=== PATIENT | male | born 1990 | race Caucasian/White ===

== ENCOUNTER 2017-05-05 13:12 | Emergency (ER) | payer SELFPAY ==
--- NOTE | 2017-05-05 14:55 | RAD ---
LUMBAR SPINE 3 VIEWS: Date: 05/05/17 HISTORY: Trauma. Low back pain. FINDINGS/IMPRESSION: No acute fracture or subluxation is identified. POS: DWIGHT
[2017-05-05 14:58] LABS: Bilirubin Negative (Negative); Blood, Urine Negative (Negative); Glucose, Urine (Dipstick) Negative (Negative); Ketone, Urine Negative (Negative); Nitrite Negative (Negative); Protein, Urine (Dipstick) Negative (Neg-Trace); Urobilinogen 0.2 mg/dL (0.2-1.0)
== END 2017-05-05 15:02 | disposition home or self-care (01) ==
LOC: ERS 13:12
DX: S39.012A Strain of muscle, fascia and tendon of lower back, initial encounter (principal); F41.9 Anxiety disorder, unspecified; F32.9 Major depressive disorder, single episode, unspecified; F17.220 Nicotine dependence, chewing tobacco, uncomplicated; X50.0XXA Overexertion from strenuous movement or load, initial encounter; Y92.69 Other specified industrial and construction area as the place of occurrence of the external cause; Y99.0 Civilian activity done for income or pay
CPT/HCPCS: 72100; 81003

== ENCOUNTER 2019-06-30 09:03 | Inpatient (IN) | payer SELFPAY ==
[2019-06-30] MEDS ORDERED: Lidocaine Viscous Sol 2% 15 ml UD Cup ONE (09:44)
[2019-06-30] MEDS ORDERED: Mag-Al 1200 mg/1200 mg/30 ML UDCUP ONE (09:44)
[2019-06-30 10:01] LABS: #Basophils 0.1 thou/uL (0.0-0.2); #Lymphocytes 2.6 thou/uL (1.20-3.40); #Monocytes 0.7 thou/uL (0.11-0.59); %Basophils 0.7 % (0.0-1.0); %Eosinophils 0.5 % (0.0-10.0); %Lymphocytes 27.4 % (21.0-51.0); %Monocytes 7.2 % (0.0-10.0); %Neutrophils 64.2 % (42.0-75.0); Hemoglobin 16.7 g/dL (14.0-18.0); Mean Corpuscular HGB CONC 34.9 g/dL (32.0-36.0); Mean Corpuscular Hemoglobin 31.4 pg (27.0-31.0); Mean Corpuscular Volume 89.9 fL (78.0-98.0); Mean Platelet Volume 9.5 fL (7.4-10.4); Platelet Count 207 thou/uL (130-400); RBC Distribution Width 11.3 % (11.5-14.5); Red Blood Cell (RBC) Count 5.32 mill/uL (4.70-6.10); White Blood Cell (WBC) Count 9.3 thou/uL (4.8-10.8)
[2019-06-30 10:16] LABS: Anion Gap 14 mmol/L (10-20); BUN (Urea Nitrogen) 17 mg/dL (8.9-20.6); Calc. Creatinine Clearance 0 mL/min (70-130); Calcium 9.6 mg/dL (7.8-10.44); Carbon Dioxide 26 mmol/L (22-29); Chloride 102 mmol/L (98-107); Estimated GFR-MDRD 67; Glucose 108 mg/dL (70-105); Potassium 3.4 mmol/L (3.5-5.1); Sodium 139 mmol/L (136-145)
--- NOTE | 2019-06-30 11:32 | CT ---
EXAM: CT chest, abdomen, and pelvis with IV contrast: HISTORY: Severe epigastric abdominal pain started 5 weeks ago and has progressively gotten worse. Coffee-groun d emesis. COMPARISON: None FINDINGS: CT THORAX: Lungs: No consolidation, suspicious pulmonary nodule, or mass. Pleura: No pleural effusion. Lymph nodes: No lymphadenopathy. Mediastinum: There is minimal soft tissue attenuation seen in the anterior superior mediastinum likel y related to small amount residual thymic tissue. No discrete mass is present. Chest wall: No abnormalities CT ABDOMEN AND PELVIS: Liver: There is diminished attenuation seen adjacent to the falciform ligament with appearance most s uggestive of fatty infiltration. Small focal area of diminished attenuation measuring 2 cm is seen within the left hepatic lobe adjacent to the gallbladder which has similar attenuation as the low den sity area adjacent to the falciform ligament. In a patient of this age, these findings statistically most likely represent focal areas of fatty infiltration. Gallbladder: Within normal limits. Pancreas: Within normal limits. Spleen: Within normal limits. Adrenal glands: Within normal limits. Kidneys: An exophytic 2.4 cm fluid attenuation cystic lesion is seen in the inferior pole right kidne y compatible with a cyst. Subcentimeter too small to characterize hypodense lesion is seen in the midportion right kidney with 1.1 cm hypodense lesion seen in the midportion left kidney which is also likely related to a cyst but is difficult to definitively characterize. Urinary Bladder: Incompletely distended but grossly normal in appearance. Reproductive organs: Within normal limits for patient's age. Bowel: Normal in caliber. Appendix: Normal in caliber. Adenopathy:No lymphadenopathy within the abdomen or pelvis. Peritoneum: No free fluid or fluid collection is seen. No free intraperitoneal gas is identified. Abdominal wall: Small fat-containing umbilical hernia is present. Osseous structures: No acute osseous abnormalities. IMPRESSION: 1. No acute findings are seen in the chest, abdomen, or pelvis. 2. Low-attenuation focus in the left hepatic lobe adjacent to the gallbladder which has a similar att enuation to area of diminished attenuation adjacent to the falciform ligament, and these areas are statistically most likely attributable to focal areas of fatty infiltration especially in a patient o f this age. Findings were reviewed with Dr. Adam who Is in agreement with findings and assessment. 2. Right renal cyst with difficult to characterize subcentimeter hypodense lesions in each kidney. 3. Small fat-containing umbilical hernia.
[2019-06-30] MEDS ORDERED: Morphine 4 MG/ML VIAL ONE (11:59)
[2019-06-30] MEDS ORDERED: Pantoprazole 40 MG VIAL ONE (11:59)
[2019-06-30] MEDS ORDERED: Iopamidol-370 76% 500 ML 1 ML ONE (12:05)
[2019-06-30] MEDS ORDERED: Pantoprazole 80 MG, Admixture Fee 1 EACH in Sodium Chloride 0.9% 100 ML IVPB SCH (15:15)
[2019-06-30] MEDS: Sodium Chloride 0.9% 1,000 ML IV SCH ×2 (16:04→22:08)
[2019-06-30] MEDS ORDERED: Ketamine 50 MG/ML (10ML VIAL) ONE (17:14)
[2019-06-30 18:47] VITALS: BMI 31.1
--- NOTE | 2019-06-30 18:51 | CON ---
DATE OF CONSULTATION: 06/30/2019 REASON FOR CONSULTATION: Abdominal pain, nausea, vomiting, and history of vomiting blood. HISTORY OF PRESENT ILLNESS: Mr. Vijay Salazar is a very pleasant 29-year-old male, who has no major medical illness. The patient takes Lexapro. It is the only medicine he is taking. The patient has been having abdominal pain over the last 5 weeks. The pain was mild to begin with. The pain was intermittent. The pain was worse after meals. The pain was localized over the epigastric area. It is more like a mild discomfort. The patient has a history of abdominal pain with nausea and vomiting. He vomited a large amount of coffee-ground material and some fresh blood. He presented to [facility]. He has normal CBC. He was advised to get transferred to [facility] in [place], but he declined to be transferred and he went home. He came back to the ER today. He has had no nausea or vomiting. He has had no stool today. The patient does not take any aspirin or any NSAID medication. The patient does not smoke, does use snuff. He also drinks beer, at least 3 to 6 beers five days a week. There is no peristaltic disease. There are no relevant symptoms. ALLERGIES: NONE. SOCIAL HISTORY: The patient is . He uses snuff. He drinks alcohol 3 to 6 beers five days a week. MEDICAL ILLNESSES: No major medical illness. SURGERIES: No major surgeries. FAMILY HISTORY: Mother side, multiple family members have cancer, but site of cancer unknown. REVIEW OF SYSTEMS: A 10-point system reviewed. CONSTITUTIONAL: No history of any weight loss, no fever, and no history of any alteration in exercise tolerance. HEENT: No chronic headache. No dizziness. Eyes; no diplopia, no impaired vision. Ears, no hearing loss. Nose, no nosebleed. Throat, no sore throat. NECK: No stiffness or any limitation of movement. LUNGS: No chronic coughing, hemoptysis, or dyspnea. CARDIOVASCULAR SYSTEM: No chest pain. No palpitation. No dyspnea, orthopnea, or PND. GASTROINTESTINAL: Abdominal pain, nausea, vomiting, and history of vomiting blood. GENITOURINARY: Not known. NEUROPSYCHIATRY: Not known. MUSCULOSKELETAL: Not known. PHYSICAL EXAMINATION: GENERAL: He appears very comfortable, in no distress. VITAL SIGNS: Very stable. Pulse is 76. Blood pressure is 130/80. HEENT: Conjunctivae are clear. NECK: Supple. No adenitis or thyromegaly noted. CARDIOVASCULAR SYSTEM: First and second heart sounds heard. LUNGS: Clear to auscultation. ABDOMEN: Soft. Abdomen is nondistended. Abdomen is mildly tender over the epigastric area. There is no rebound or guarding. Bowel sounds are normal. EXTREMITIES: Reveal no edema. LABORATORY DATA: CBC; WBC 9300, hemoglobin is 16.7, hematocrit 47.9, MCV is 89.9, platelet count is 207,000, polymorphs 64, lymphocytes 27. His chemistry panel is basically normal except sodium, potassium 3.4, BUN is 17, glucose 108. An abdominal CAT scan done showed no acute pathology. IMPRESSION: A 29-year-old male with abdominal pain for the last 5 weeks. The pain got worse last night with nausea and vomiting. Although he has history of vomiting large amount of blood, but he has a normal CBC. Based on the history, I believe he most likely has peptic ulcer disease with possible bleeding. RECOMMENDATIONS: 1. N.p.o. 2. IV PPI. 3. IV fluids. 4. Serial H and H. 5. EGD later on today. I did meet with the patient and his and explained them about the procedure. I will make further recommendations after EGD. Job ID: [id number]
[2019-06-30] MEDS: Morphine 2 MG/ML SYRINGE SLOW IVP PRN (20:26)
[2019-06-30] MEDS: Ondansetron PF 4 MG/2 ML Vial SLOW IVP PRN (20:26)
[2019-06-30] MEDS ORDERED: Sodium Chloride 0.9% (PF) 10 ML VIAL FS PRN (21:41)
[2019-06-30] MEDS: Promethazine HCl 12.5 MG in Sodium Chloride 0.9% 50 ML IVPB PRN (22:02)
[2019-07-01] MEDS ORDERED: Acetaminophen 650 MG Suppository PR PRN (00:07)
[2019-07-01] MEDS ORDERED: Acetaminophen 325 MG TAB PO PRN (00:07)
--- NOTE | 2019-07-01 01:44 | HP ---
TIME OF ASSESSMENT: 2299. CHIEF COMPLAINT: Abdominal pain and upper GI bleed. HISTORY OF PRESENT ILLNESS: Mr. Salazar is a pleasant 29-year-old gentleman, who presented to the emergency department at [facility] yesterday with complaints of abdominal pain and decreased appetite. The patient also with persistent postprandial vomiting. Apparently, he had an NG tube placed with CT scan of abdomen and pelvis notable for bright red blood. An upper endoscopy was recommended, however, the patient left without having this done. He returned to the emergency department today due to complaints of persistent abdominal pain. He has had coffee-ground emesis for the last 10 days and according to the patient that is the main reason why he presented to the ER yesterday. Today, he has had one episode of melena. He states his discomfort started about 5 weeks ago. He has noted decreased appetite and postprandial discomfort. Denies any early satiety or bloating. States the pain is mainly in the epigastric region. He has not been taking any NSAIDs or any new medications. He takes Lexapro for depression only. The patient denies having any issues with GERD or gastritis in the past. Denies any comorbidities. Prior to today, has not had any hematochezia or melena. He reports having weight loss of about 5 pounds in the last couple weeks, which he attributes to decreased appetite and subsequently decreased oral intake. For the last week, he has been drinking smoothies to help supplement his diet as he has had a poor appetite. Denies any family history of GI problems or cancer. He does report drinking one case of beer a week. The patient is unable to pinpoint exactly how many beers he has a day, but he does drink 5 days a week. Denies any liquor intake. All other review of systems are negative. Denies any dizziness or lightheadedness. No shortness of breath. No chest pain. ED COURSE: In the emergency department, the patient had been treated with 4 mg of morphine. Given 1 L of normal saline. Given 40 mg of Protonix IV and 40 mg of Protonix p.o. Also given a GI cocktail. His case was discussed with Dr. Smith, who recommended an upper endoscopy. He advised holding the patient in the ER with plans to complete endoscopy early in the evening. Due to prolonged weight, the decision was made to admit the patient for observation. There was miscommunication between the ED physician and Dr. Smith, and the patient was accidentally admitted under Dr. Smith. We have since been informed that the patient was meant to be admitted under our service. PAST MEDICAL HISTORY: 1. Anxiety. 2. Depression. PAST SURGICAL HISTORY: None. SOCIAL HISTORY: The patient lives with his family. Denies any tobacco use or illicit drug use. Reports drinking 5 to 6 days a week. He reports drinking "a few beers each of those days, but unable to pinpoint exactly how much." He drinks overall a case a week. ALLERGIES: NO KNOWN DRUG ALLERGIES. CURRENT MEDICATIONS: Lexapro 10 mg p.o. daily. PHYSICAL EXAMINATION: GENERAL: The patient appears well developed, well nourished, is in no acute distress. VITAL SIGNS: Temperature 98.3, pulse 100, respirations 16, O2 saturation 97% on room air, and blood pressure 151/94. HEENT: Normocephalic and atraumatic. Pupils are equal, round, and reactive to light. Sclerae are without icterus. Oropharynx is clear. NECK: Supple without lymphadenopathy. LUNGS: Clear to auscultation bilaterally without wheezes, rales, or rhonchi. CARDIAC: Regular rate and rhythm. ABDOMEN: Notable for mid to upper abdominal discomfort on palpation. When abdomen is palpated on the right upper quadrant and left upper quadrant, he reports feeling discomfort in the epigastric region. No rigidity. No bloating. No distention. EXTREMITIES: No lower leg swelling or edema. NEUROLOGIC: Alert and oriented x3. SKIN: Warm and dry. LABORATORY DATA: White blood count 9.3, hemoglobin 16.7, hematocrit 47.9, platelets 207. Sodium 139, potassium 3.4, BUN 17, creatinine 1.26, GFR 67, glucose 108. IMAGING DATA: CT chest, abdomen, and pelvis done 06/30/2019, showed a low-attenuation focus in the left hepatic lobe adjacent to the gallbladder, which has similar attenuations with area of diminished attenuation adjacent to the falciform ligament and it is said these are likely related to focal areas of fatty infiltration, given his age. Right renal cyst with difficult to characterize subcentimeter hypodense lesions in each kidney. Small fat containing umbilical hernia present. CT of the chest showed minimal soft tissue attenuation in the anterior superior mediastinum, felt to be related to small amount of residual thymic tissue. No discrete mass present. Overall, no acute findings seen in the chest, abdomen, or pelvis, per report. He had a chest x-ray done 06/29/2019, showing no acute chest finding. IMPRESSION AND PLAN: Mr. Salazar is a 29-year-old gentleman with abdominal pain and coffee-ground emesis, who has been admitted for the following. 1. Upper gastrointestinal bleed. The patient with bright red blood on NG tube output while in the emergency department yesterday. He opted to go home and since yesterday has developed one episode of melenic stools with persistent epigastric discomfort. Seen by Dr. Smith, who has recommended an upper endoscopy to be done tomorrow morning. The patient on IV Protonix. Also, we will continue with IV fluids. Continue with serial H and H as per Dr. Smith's recommendations. He remains n.p.o. 2. Anxiety/depression. We will resume home medication after his endoscopic procedure. 3. Elevated blood pressure. We will cut down fluids and monitor blood pressure. He has no known history of hypertension. 4. Deep venous thrombosis prophylaxis with mechanical SCDs. 5. Code status full. Surrogate decision maker is his , Gabby Salazar. The patient's case was discussed with attending, who agrees upon care as described above. Job ID: [id number]
[2019-07-01] MEDS: Sodium Chloride 0.9% 1,000 ML IV SCH ×2 (01:49→10:59)
[2019-07-01] MEDS: Ondansetron PF 4 MG/2 ML Vial SLOW IVP PRN (02:31)
[2019-07-01] MEDS: Morphine 2 MG/ML SYRINGE SLOW IVP PRN ×3 (04:40→14:55)
[2019-07-01] MEDS: Promethazine HCl 12.5 MG in Sodium Chloride 0.9% 50 ML IVPB PRN (04:41)
[2019-07-01 05:11] LABS: #Eosinphils 0.1 thou/uL (0.0-0.7); #Lymphocytes 2.6 thou/uL (1.20-3.40); #Monocytes 0.6 thou/uL (0.11-0.59); #Neutrophils 4.5 thou/uL (1.40-6.50); %Basophils 0.4 % (0.0-1.0); %Eosinophils 1.1 % (0.0-10.0); %Lymphocytes 33.5 % (21.0-51.0); %Monocytes 7.5 % (0.0-10.0); %Neutrophils 57.6 % (42.0-75.0); Hemoglobin 14.9 g/dL (14.0-18.0); Mean Corpuscular HGB CONC 34.5 g/dL (32.0-36.0); Mean Corpuscular Hemoglobin 31.4 pg (27.0-31.0); Mean Platelet Volume 9.5 fL (7.4-10.4); Platelet Count 173 thou/uL (130-400); RBC Distribution Width 11.2 % (11.5-14.5); Red Blood Cell (RBC) Count 4.72 mill/uL (4.70-6.10); White Blood Cell (WBC) Count 7.8 thou/uL (4.8-10.8)
[2019-07-01 05:16] LABS: INR-International Normal Ratio 1.1; PTT 30.6 SEC (22.9-36.1); Prothrombin Time 13.9 SEC (12.0-14.7)
[2019-07-01 05:32] LABS: ALT (SGPT) 74 U/L (8-55); AST (SGOT) 36 U/L (5-34); Albumin 4.2 g/dL (3.5-5.0); Alkaline Phosphatase 61 U/L (40-110); Bilirubin, Direct 0.4 mg/dL (0.1-0.3); Protein, Total 6.7 g/dL (6.0-8.3)
[2019-07-01 05:35] LABS: Anion Gap 12 mmol/L (10-20); BUN (Urea Nitrogen) 15 mg/dL (8.9-20.6); Calc. Creatinine Clearance 139 mL/min (70-130); Calcium 8.9 mg/dL (7.8-10.44); Carbon Dioxide 25 mmol/L (22-29); Chloride 107 mmol/L (98-107); Estimated GFR-MDRD 75; Glucose 81 mg/dL (70-105); Lipase 13 U/L (8-78); Potassium 3.9 mmol/L (3.5-5.1); Sodium 140 mmol/L (136-145)
[2019-07-01] MEDS ORDERED: Pantoprazole 40 MG VIAL IVP SCH ×2 (09:00→13:30)
[2019-07-01] MEDS: Promethazine HCl 25 MG/ML VIAL IM/IV SCH ×3 (09:25→18:14)
[2019-07-01] MEDS ORDERED: Promethazine HCl 25 MG/ML VIAL SLOW IVP PRN (12:33)
[2019-07-01] MEDS ORDERED: Promethazine HCl 25 MG/ML VIAL IM PRN (12:33)
[2019-07-01] MEDS ORDERED: Ondansetron HCl/PF 4 MG/2 ML Vial IVP PRN (12:33)
[2019-07-01] MEDS ORDERED: Fentanyl 100 MCG/2 ML VIAL ONE (12:53)
[2019-07-01] MEDS ORDERED: Dicyclomine 10 MG CAP PO PRN (13:19)
[2019-07-01] MEDS ORDERED: PROPOFOL 200 MG/20 ML VIAL ONE (13:58)
--- NOTE | 2019-07-01 14:45 | PDOC.HOSPP ---
- Subjective Encounter Date: 07/01/19 Encounter Time: 07:20 Subjective: Pt seen for followup re: abdo pain. c/o ongoing pain. nausea++. - Objective Vital Signs & Weight: Vital Signs (12 hours) Temp Pulse Resp BP Pulse Ox 07/01/19 08:00 97.5 F L 79 20 146/73 H 97 Weight Weight 230 lb I&O: 06/30/19 07/01/19 07/02/19 06:59 06:59 06:59 Intake Total 706 Balance 706 Result Diagrams: 07/01/19 04:28 07/01/19 04:28 Additional Labs: Labs and MARs reviewed by me Hospitalist ROS - Review of Systems Cardiovascular: denies: chest pain, palpitations, orthopnea, paroxysmal noc. dyspnea, edema, light headedness Gastrointestinal: reports: nausea, vomiting, abdominal pain. denies: diarrhea, constipation, melena, hematochezia - Medication Medications: Active Medications Generic Name Dose Route Start Last Admin Trade Name Freq PRN Reason Stop Dose Admin Sodium Chloride 1,000 mls @ 100 mls/hr 07/01/19 00:51 07/01/19 10:59 Normal Saline 0.9% IV 1,000 mls .Q10H MILLI Administration Morphine Sulfate 2 mg 07/01/19 08:37 07/01/19 09:30 Morphine SLOW IVP 2 mg Q4H PRN Administration Pain Ondansetron HCl 4 mg 06/30/19 20:22 07/01/19 02:31 Zofran SLOW IVP 4 mg Q6H PRN Administration Nausea/Vomiting Pantoprazole Sodium 40 mg 07/01/19 13:30 07/01/19 14:35 Protonix IVP 07/01/19 15:30 40 mg NOW MILLI Administration Promethazine HCl 12.5 mg 07/01/19 09:00 07/01/19 14:02 Phenergan IM/IV Not Given Q4HR MILLI - Exam General - other findings: Obese Eye: anicteric sclera ENT: moist mucosa Neck: supple, no JVD Heart: RRR, no rubs Respiratory: CTAB, no wheezes Gastrointestinal: soft, normal bowel sounds, tender to palpation Gastrointestinal - other findings: epigastric tenderness, no guarding or rigidity Extremities: no clubbing Musculoskeletal: normal tone, normal strength Psychiatric: normal affect, normal behavior Hosp A/P (1) Abdominal pain Code(s): R10.9 - UNSPECIFIED ABDOMINAL PAIN Status: Acute (2) Abnormal LFTs Code(s): R94.5 - ABNORMAL RESULTS OF LIVER FUNCTION STUDIES Status: Acute (3) Coffee ground emesis Code(s): K92.0 - HEMATEMESIS Status: Resolved - Plan Pt for EGD. Morphine for pain. Phenergan for nausea. Abnl LFTs: follow up as outpatient.
[2019-07-01 16:47] LABS: Amphetamine Not Detected (NotDetected); Barbiturates Screen Not Detected (NotDetected); Benzodiazepine Screen Not Detected (NotDetected); Cocaine Metabolite Screen Not Detected (NotDetected); Medtox Control Line Valid? VALID (VALID); Medtox Reader # READER 4; Methadone Not Detected (NotDetected); Methamphetamine Not Detected (NotDetected); Opiate Screen Detected (NotDetected); Oxycodone Screen Not Detected (NotDetected); Phencyclidine (PCP) Not Detected (NotDetected); THC/Cannabinoid Screen Detected (NotDetected); Tricyclic Screen Not Detected (NotDetected)
[2019-07-01 18:46] VITALS: BP 126/72; TEMP 98.2
--- NOTE | 2019-07-02 04:20 | DIS ---
DATE OF ADMISSION: 06/30/2019 DATE OF DISCHARGE: 07/01/2019 PRIMARY CARE PROVIDER: Unknown. DISCHARGE DIAGNOSES: 1. Abdominal pain. 2. Abnormal liver function tests. 3. Coffee-grounds emesis. CONDITION OF PATIENT ON THE DAY OF DISCHARGE: Stable. I assessed Mr. Salazar on the day of discharge. Please refer to my daily hospitalist progress note for details regarding this [id number] encounter. CONSULTATIONS DURING THIS HOSPITALIZATION: Gastroenterology, Dr. Smith. DISCHARGE MEDICATIONS: 1. Lexapro 20 mg daily. 2. Dicyclomine 10 mg 4 times a day as needed. 3. Protonix 40 mg daily. HOSPITAL COURSE: Mr. Salazar is a pleasant 29-year-old gentleman who was admitted to [facility] on June 30, 2019 for abdominal pain. He was seen by Gastroenterology Service. He underwent EGD on July 01, 2019. At the time of this dictation, the official report of the EGD study is pending. I was contacted by conservation coordinator and notified that he could be discharged home on p.r.n. Bentyl and daily Protonix. On the day of discharge, he has white count of 7.8, hemoglobin 14.9, platelet count 173,000, normal Chem-7. His direct bilirubin was mildly elevated at 0.4. AST and ALT are mildly elevated at 36 and 74. He has been advised to follow up with the primary care provider for abnormal liver function tests. POST ACUTE CARE DISCHARGE: With primary care provider in 3 days and with Gastroenterology Service in 2 to 3 weeks. DIET: Regular. ACTIVITY: Ad bernard. DISCHARGE DESTINATION: Home. TIME SPENT: Total amount of time spent coordinating this discharge: 20 minutes. Job ID: [id number]
[2019-07-02] MEDS ORDERED: Pantoprazole 40 MG VIAL IVP SCH (09:00)
--- NOTE | 2019-07-02 09:49 | OP ---
DATE OF PROCEDURE: 07/01/2019 PREPROCEDURE DIAGNOSES: 1. Epigastric pain. 2. Hematemesis, self-limited post normal CAT scan of abdomen, chest, and pelvis. POSTPROCEDURE DIAGNOSES: Emetogenic injury in the stomach with no active bleeding submucosal areas of hemorrhage in the body of the stomach, otherwise normal esophagogastroduodenoscopy. RECOMMENDATIONS: 1. PPI therapy. 2. Advance diet. 3. I think that his epigastric pain is nonfunctional dyspepsia related to ongoing alcohol use, tobacco use, and stress. I would address these issues. No further need for other endoscopies. He will go home later today and follow up with Dr. Smith as needed, but really just needs to follow with his primary physician for above-noted issues. ANESTHESIA: TIVA. PROCEDURE IN DETAIL: After the patient was informed of the risks, benefits, and possible complications of endoscopy including perforation, bleeding, reaction to medication, and aspiration, informed consent was obtained. The patient was brought to endoscopy suite, where he was sedated in gradual fashion. Once he was comfortable, a bite block was placed inside the orifice. The endoscope was advanced through the esophagus, stomach, and second and third portions of the duodenum and slowly removed. The esophagus was normal. Stomach was notable for some mild emetogenic injury in the proximal stomach with no overt tears or perforation. This was likely related to retching and being consistent with the fact that he had some self-limiting hematemesis with no drop in hemoglobin. The stomach was normal. The duodenum was normal until the third portion. The scope was removed. The patient tolerated the procedure well. There were no complications. Job ID: [id number]
== END 2019-07-01 18:40 | disposition home or self-care (01) | DRG 379 ==
LOC: ERS 09:03 → OBSVTOIN 14:41 → SURG A 14:41
PROVIDERS: ADMIT Internal Medicine Gastroenterology; ATTEND Emergency Medicine
PROC: 0DJ08ZZ Inspection of Upper Intestinal Tract, Via Natural or Artificial Opening Endoscopic (ICD-10-PCS; principal; 2019-07-01)
DX: K92.0 Hematemesis (principal); R10.13 Epigastric pain; R94.5 Abnormal results of liver function studies; F41.9 Anxiety disorder, unspecified; F32.9 Major depressive disorder, single episode, unspecified
CPT/HCPCS: 36415; 71260; 74177; 80048; 80076; 80306; 82274; 83690; 83735; 85025; 85610; 85730; 96361; 96374; 96375; C9113; J2270; J2405; J2550; J2704; J3010; Q9967